=== PATIENT | female | born 1990 | race Caucasian/White ===

== ENCOUNTER 2016-12-06 06:00 | Inpatient (IN) | payer BC ==
[~2016-12-06] VITALS: Ht 165.1 cm; Wt 92.7 kg
[~2016-12-06 06:00] MED LIST: PREN1TAB77 PO
[2016-12-06] MEDS ORDERED: MAG-AL + SIM LIQUID 30 ML UDC PO PRN (06:15)
[2016-12-06] MEDS ORDERED: CALCIUM CARBONATE 500mg Chewable TAB PO PRN (06:15)
[2016-12-06] MEDS ORDERED: LIDOCAINE 1% (10mg/ml) 2ml SDV ID PRN (06:15)
[2016-12-06] MEDS ORDERED: ACETAMINOPHEN 500 MG TABLET PO PRN (06:15)
[2016-12-06] MEDS ORDERED: OXYTOCIN 30 UNIT in D5LR 500 ML PRN (06:15)
[2016-12-06] MEDS: LR 1,000 ML IV PRN ×3 (06:39→09:25)
[2016-12-06] MEDS ORDERED: D5LR 1,000 ML IV PRN (06:40)
[2016-12-06] MEDS ORDERED: AMPICILLIN 2 G in NORMAL SALINE 100 ML IV ONE (06:40)
[2016-12-06 06:46] LABS: HCT - HEMATOCRIT 33.7 % (36-46); HGB - HEMOGLOBIN 10.8 GM/DL (12-16); MEAN CORPUSCULAR HGB 26.9 UUG (26-34); MEAN PLATELET VOLUME 10.9 UM3 (9.4-12.4); RED BLOOD COUNT 4.01 M/MM3 (4.00-5.20); WBC - WHITE BLOOD COUNT 8.6 T/MM3 (4.5-11.0)
[2016-12-06 07:06] VITALS: BP 112/59; PULSE 100; RESP 18; TEMP 97.7
--- NOTE | 2016-12-06 07:57 | ANESOB ---
Epidural/ Date/Time DATE: 12/06/16 TIME: 07:56 Preop Diagnosis Procedure: Labor Epidural Plan: Epidural Height: 5 ' 5.00 " Weight: 92.720 kg BMI: kg/m2 P:1 Medications & Allergies Inpatient Medications Current Medications Medications (Trade) Dose Ordered Sig/Dania Start Time Stop Time Status Last Admin Dose Admin Ampicillin Sodium/ Sodium Chloride (Ampicillin/NS) 100 ml @ 200 mls/hr Q4H 12/06/16 10:40 Lidocaine HCl 0.2 mg 0.2 mg PRN PRN 12/06/16 06:15 Lactated Ringer's (Lactated Ringers) 1,000 ml @ 0 mls/hr Q0M PRN 12/06/16 06:14 12/06/16 06:39 999 MLS/HR Acetaminophen (Tylenol Extra Strength) 1-2 TABS = 500-1,000 MG Q4H PRN 12/06/16 06:15 Al Hydroxide/Mg Hydroxide (Maalox) 30 ml Q4H PRN 12/06/16 06:15 Calcium Carbonate 1-2 TABS Q2H PRN 12/06/16 06:15 Dextrose/Lactated Ringer's 1,000 ml @ 0 mls/hr Q0M PRN 12/06/16 06:40 Oxytocin/Dextrose/ Lactated Ringer's (Pitocin/D5lr) 503 ml @ 0 mls/hr Q0M PRN 12/06/16 06:15 Vits W-Ca,Fe,FA(<1Mg) ( Vitamins) 1 Each Tablet, 1 TAB PO DAILY , (Reported) Last Taken: on 12/05/16 0930 Coded Allergies: No Known Drug Allergies (Verified Allergy, Unknown, 12/06/16) Medical/Surgical History Anesthesia PMH: Denies: *Angina, *Diabetes, *Hypertension, *CT, Anesthesia Reactions, Asthma, CHF, COPD, CVA/Stroke/TIA, Cancer, Glaucoma, Hiatal Hernia, Malignant Hyperthermia, Pneumonia, Reflux, Seizures, Tuberculosis Smoking Status: Never smoker Does patient use chewing tobac: No Second Hand Exposure: No Substance Use Type: does not use Alcohol Intake: none Anesthesia Adverse Reactions: FOUND none Family Hx of Anesthesia Advers: none Hx of Motion Sickness: No Complications During : No Pertinent Findings Laboratory Tests 12/06/16 06:35 EKG Rhythm: Sinus Rhythm Physical Exam Respiratory: Lungs clear Cardiovascular: No murmur, Regular rate, rhythm Airway Assessment Mallampati Score: I TMD: 3 Fingerbreadths Neck Extension: Good Overall Assessment: No Airway Concerns ASA: 2 Discussion Discussed risks/options/alternatives of anesthesia. Patient consents. Nursing pain assessment noted. Present for Discussion: Present: Spouse Attestation Statement Prior to the delivery of any anesthetic medication, I examined the patient, developed the plan, obtained the patient's consent and discussed the risk and benefits of the procedure with the patient/guardian. If the note happens to be signed after anesthesia start time, it is only due to providing efficient care of the patient and documenting at a time when the computer is available. KT PAPPAS I POT FEEDER Dec 06, 2016 07:57
[2016-12-06] MEDS ORDERED: NALOXONE 0.4mg/ml INJECTION IV PRN (08:00)
[2016-12-06] MEDS ORDERED: DiphenhydrAMINE 50 MG/ML INJECTION IV PRN (08:00)
[2016-12-06] MEDS ORDERED: ONDANSETRON 4mg/2ml INJECTION IV PRN (08:00)
[2016-12-06] MEDS ORDERED: ROPIVACAINE 1% 200 MG, SUFENTANIL 50 MCG in NORMAL SALINE 80 ML EPI PRN (08:00)
[2016-12-06] MEDS ORDERED: AMPICILLIN 1 G in NORMAL SALINE 100 ML IV SCH (10:40)
[2016-12-06] MEDS ORDERED: OXYTOCIN 30 UNIT in D5W 500 ML IV ONE (13:16)
[2016-12-06] MEDS ORDERED: DiphenhydrAMINE 25 MG CAPSULE PO PRN (13:30)
[2016-12-06] MEDS ORDERED: HYDROCODONE/APAP 5 mg/325 mg TABLET PO PRN (13:30)
[2016-12-06] MEDS ORDERED: MILK OF MAGNESIA 30 ML SUSP PO PRN (13:30)
[2016-12-06] MEDS ORDERED: HYDROCORTISONE 2.5% CREAM 30 GM RECTALLY PRN (13:30)
[2016-12-06] MEDS ORDERED: PHENYLEPHRINE RECTAL SUPPOSITORY RECTALLY PRN (13:30)
--- NOTE | 2016-12-06 16:58 | LDNF ---
DATE OF DELIVERY 12/06/2016 RAJANI Hammonds is a 26-year-old 2, para 1 at 39 weeks 3 days gestational age who was brought in for a Pitocin induction this morning. When she was having her IV placed she had a vagal response and baby had a couple of decelerations. Baby looked good the rest of the day. She was started on ampicillin for her group B strep. She received an epidural. Her membranes were ruptured artificially, returning clear fluids. She progressed nicely throughout labor. She pushed for a short period of time and had a spontaneous vaginal delivery in the ERICA position of a viable male , Apgars 9/9, weight 3931 g, "[place]." Baby was vigorous at delivery so he was placed on mom's abdomen. The cord clamping was delayed for more than two minutes. The placenta delivered spontaneously. She had bilateral periurethral lacerations that were repaired with 3-0 chromic. Mom and baby tolerated the delivery well. NICH[facility]IAL HOSPITALWilberto
[2016-12-06 17:15] VITALS: BP 117/64; PULSE 105; RESP 18; TEMP 98.4; O2SAT 99
[2016-12-06] MEDS: IBUPROFEN 800 MG TABLET PO PRN (18:35)
[2016-12-07 00:57] VITALS: BP 106/60; PULSE 99; RESP 18; TEMP 98; O2SAT 97
[2016-12-07] MEDS: IBUPROFEN 800 MG TABLET PO PRN (03:26)
[2016-12-07 03:30] VITALS: BP 113/74; PULSE 99; RESP 18; TEMP 97.7; O2SAT 99
--- NOTE | 2016-12-07 08:18 | PNPDOC ---
Progress Note PPD1 Rubella: Immune GBS: Positive Blood Type:O pos Subjective 12/07/16 Lochia: Moderate Pain: Controlled Voiding: Voiding Nausea and Vomiting: No Nausea/Vomiting Objective Vital Signs Date Time Temp Pulse Resp B/P Pulse Ox O2 Delivery O2 Flow Rate FiO2 12/07/16 03:30 97.7 99 18 113/74 99 Room Air Urine Output: Good General: Alert and Oriented Respiratory: Non-labored Abdomen: Fundus Firm Extremities: Non-tender Edema: None Laboratory Item Value Date Time Hemoglobin 10.8 GM/DL L 12/06/16 0635 Hematocrit 33.7 % L 12/06/16 0635 Platelet Count 205 T/MM3 12/06/16 0635 White Blood Count 8.6 T/MM3 12/06/16 0635 Assessment SP, , GBS positive Plan Routine Care Expected date of discharge: Dec 08, 2016 Doing well. No complaints NATE CRAWFORD APRN Dec 07, 2016 08:18
[2016-12-07 08:28] VITALS: BP 128/80; PULSE 86; RESP 18; TEMP 97.7; O2SAT 98
[2016-12-07] MEDS: DOCUSATE CALCIUM 240 MG CAPSULE PO SCH ×2 (08:47→17:09)
--- NOTE | 2016-12-07 13:38 | ANESPO ---
Post-Op Note Date 12/07/16 Time: 13:38 Status Pt Participated in Evaluation: Pt participated in person Vital Signs Date Time Temp Pulse Resp B/P Pulse Ox O2 Delivery O2 Flow Rate FiO2 12/07/16 08:28 97.7 86 18 128/80 98 Room Air Respiratory Function: Airway patent Cardiovascular Function: Regular pulse Mental Status: Alert/oriented Pain Level Intensity: 0 Hydration: Taking po fluids Complications during Recovery None apparent Follow-Up Instructions Instructions Per Surgeon AVELINA OHARA CRNA Dec 07, 2016 13:38
[2016-12-07 15:32] VITALS: BP 120/70; PULSE 92; RESP 14; TEMP 98.4; O2SAT 97
[2016-12-07 23:10] VITALS: BP 103/65; PULSE 84; RESP 16; TEMP 98; O2SAT 97
[2016-12-08 07:29] VITALS: BP 109/67; PULSE 79; RESP 16; TEMP 98; O2SAT 99
--- NOTE | 2016-12-08 08:18 | PNPDOC ---
Progress Note PPD2 Rubella: Immune GBS: Positive Blood Type:O pos Subjective 12/08/16 Lochia: Minimal Pain: Controlled Voiding: Voiding Nausea and Vomiting: No Nausea/Vomiting Objective VSS AF Vital Signs Date Time Temp Pulse Resp B/P Pulse Ox O2 Delivery O2 Flow Rate FiO2 12/08/16 07:29 98.0 79 16 109/67 99 12/07/16 23:10 Room Air General: Alert and Oriented Respiratory: Non-labored Abdomen: Fundus Firm Extremities: Non-tender Edema: None Assessment Plan Discharge Home (Plans to use Ibuprofen that she has a home for pain.) CHARLENE SCOTT APRN Dec 08, 2016 08:18
== END 2016-12-08 13:50 | disposition home or self-care (01) | DRG 775 ==
LOC: MC 06:02
PROVIDERS: ADMIT Obstetrics & Gynecology; ATTEND Obstetrics & Gynecology
PROC: 10E0XZZ Delivery of Products of Conception, External Approach (ICD-10-PCS; principal; 2016-12-06)
PROC: 0UQMXZZ Repair Vulva, External Approach (ICD-10-PCS; 2016-12-06)
PROC: 3E033VJ Introduction of Other Hormone into Peripheral Vein, Percutaneous Approach (ICD-10-PCS; 2016-12-06)
PROC: 10907ZC Drainage of Amniotic Fluid, Therapeutic from Products of Conception, Via Natural or Artificial Opening (ICD-10-PCS; 2016-12-06)
DX: O26.893 Other specified pregnancy related conditions, third trimester (principal); O32.8XX0 Maternal care for other malpresentation of fetus, not applicable or unspecified; O71.82 Other specified trauma to perineum and vulva; O76 Abnormality in fetal heart rate and rhythm complicating labor and delivery; O99.824 Streptococcus B carrier state complicating childbirth; O36.63X0 Maternal care for excessive fetal growth, third trimester, not applicable or unspecified; Z3A.39 39 weeks gestation of pregnancy; Z37.0 Single live birth
CPT/HCPCS: 85027; 86850; 86900; 86901